=== PATIENT | male | born 1950 | race Caucasian/White ===

== ENCOUNTER 2021-04-15 09:19 | Emergency (ER) | payer SELFPAY ==
[2021-04-15] MEDS ORDERED: Ondansetron PF 4 MG/2 ML Vial ONE (10:14)
[2021-04-15] MEDS ORDERED: Morphine 4 MG/ML VIAL ONE (10:14)
[2021-04-15 10:17] LABS: #Basophils 0.1 thou/uL (0.0-0.2); #Lymphocytes 1.1 thou/uL (1.20-3.40); #Neutrophils 12.6 thou/uL (1.40-6.50); %Basophils 0.4 % (0.0-1.0); %Eosinophils 0.1 % (0.0-10.0); %Lymphocytes 7.5 % (21.0-51.0); %Monocytes 6.5 % (0.0-10.0); %Neutrophils 85.5 % (42.0-75.0); Hemoglobin 19.1 g/dL (14.0-18.0); Mean Corpuscular Hemoglobin 29.4 pg (27.0-31.0); Mean Corpuscular Volume 89.1 fL (78.0-98.0); Mean Platelet Volume 7.4 fL (7.4-10.4); Platelet Count 318 thou/uL (130-400); Red Blood Cell (RBC) Count 6.49 mill/uL (4.70-6.10); White Blood Cell (WBC) Count 14.8 thou/uL (4.8-10.8)
[2021-04-15 10:32] LABS: ALT (SGPT) 48 U/L (8-55); AST (SGOT) 35 U/L (5-34); Albumin 4.4 g/dL (3.4-4.8); Alkaline Phosphatase 106 U/L (40-110); Anion Gap 20 mmol/L (10-20); BUN (Urea Nitrogen) 49 mg/dL (8.4-25.7); Bilirubin, Total 2.6 mg/dL (0.2-1.2); Calc. Creatinine Clearance 0 mL/min (70-130); Calcium 11.1 mg/dL (7.8-10.44); Carbon Dioxide 28 mmol/L (23-31); Chloride 95 mmol/L (98-107); Globulin 3.5 g/dL (2.4-3.5); Glucose 162 mg/dL (80-115); Lipase 31 U/L (8-78); Protein, Total 7.9 g/dL (5.8-8.1); Sodium 140 mmol/L (136-145)
[2021-04-15] MEDS ORDERED: Lactated Ringer's 1,000 ML ONE (11:04)
[2021-04-15] MEDS ORDERED: NS 0.9% w/ 40 MEQ KCL 1,000 ML IV ONE (11:06)
[2021-04-15 11:22] LABS: Magnesium 2.1 mg/dL (1.6-2.6)
[2021-04-15] MEDS ORDERED: Iopamidol 370 76% 100 ML VIAL ONE (11:37)
[2021-04-15] MEDS ORDERED: Meropenem 1 GM VIAL ONE (12:06)
[2021-04-15 12:07] LABS: SARS-CoV-2 NAA Rapid Test Not Detected (NotDetected)
[2021-04-15] MEDS ORDERED: Sodium Chloride 0.9% 200 ML ONE (12:08)
[2021-04-15] MEDS ORDERED: ceFAZolin 2 GM/DEX 5% 100 ML BAG ONE (14:18)
[2021-04-15] MEDS ORDERED: Fentanyl 250 MCG/5 ML VIAL ONE (14:19)
[2021-04-15] MEDS ORDERED: Bupivacaine PF 0.5% 30 ML VIAL ONE (15:14)
[2021-04-15] MEDS ORDERED: Fentanyl 100 MCG/2 ML VIAL ONE (15:57)
== END 2021-04-15 13:00 | disposition short-term general hospital (02) ==
LOC: MADERS 09:19
DX: N17.9 Acute kidney failure, unspecified (principal); K56.609 Unspecified intestinal obstruction, unspecified as to partial versus complete obstruction; K43.9 Ventral hernia without obstruction or gangrene; E87.6 Hypokalemia; D72.829 Elevated white blood cell count, unspecified; Z20.822 Contact with and (suspected) exposure to COVID-19; I10 Essential (primary) hypertension; E11.9 Type 2 diabetes mellitus without complications; K21.9 Gastro-esophageal reflux disease without esophagitis; E78.5 Hyperlipidemia, unspecified; E78.00 Pure hypercholesterolemia, unspecified; Z79.82 Long term (current) use of aspirin; Z79.84 Long term (current) use of oral hypoglycemic drugs; Z79.899 Other long term (current) drug therapy
CPT/HCPCS: 71045; 74177; 80053; 83605; 83690; 83735; 85025; 93005; 94760; 96365; 96366; 96368; 96375; J2185; J2270; J2405; J3010; J3480; J3490; J7120; Q9967; S0020; U0002

== ENCOUNTER 2024-02-08 17:42 | Emergency (ER) | payer OTHER, SELFPAY ==
[2024-02-08] MEDS ORDERED: Cephalexin 500 MG CAP ONE (18:02)
[2024-02-08] MEDS ORDERED: Lidocaine 1% (PF) 30 ML VIAL ONE (18:02)
[2024-02-08] MEDS ORDERED: HYDROcodone/Acetaminophen 5/325 mg Tablet ONE (19:07)
[2024-02-08] MEDS ORDERED: Bacitracin 1 PK ONE (19:07)
== END 2024-02-08 19:26 | disposition home or self-care (01) ==
LOC: MADERS 17:42
DX: S61.412A Laceration without foreign body of left hand, initial encounter (principal); E11.9 Type 2 diabetes mellitus without complications; I10 Essential (primary) hypertension; W26.8XXA Contact with other sharp object(s), not elsewhere classified, initial encounter
CPT/HCPCS: 12004; 99283